=== PATIENT | male | born 1950 | race Caucasian/White ===

== ENCOUNTER 2021-07-24 21:23 | Inpatient (IN) | payer MEDICARE ==
[~2021-07-24] VITALS: Ht 182.9 cm; Wt 87.0 kg
[2021-07-24] MEDS ORDERED: BETAPACE 80MG T80 MG PO (21:38)
[2021-07-24] MEDS ORDERED: ISOSORBIDE MONO30 MG PO (21:38)
[2021-07-24] MEDS ORDERED: BUSPIRONE HCL7.5 MG PO (21:39)
[2021-07-24] MEDS ORDERED: AMLODIPINE BES2.5 MG PO (21:39)
[2021-07-24] MEDS ORDERED: ESCITALOPRAM OX10 MG PO (21:39)
[2021-07-24] MEDS ORDERED: DIGOXIN125 MCG PO (21:40)
[2021-07-24] MEDS ORDERED: NITROGLYCERIN0.4 MG SL (21:40)
[2021-07-24] MEDS ORDERED: ELIQUIS5 MG PO (21:41)
[2021-07-24] MEDS ORDERED: VASCEPA1 GM PO (21:41)
[2021-07-24] MEDS ORDERED: ALPRAZOLAM0.5 MG PO (21:42)
[2021-07-24] MEDS ORDERED: MAG-OX 400 TAB400 MG PO (21:42)
[2021-07-24] MEDS ORDERED: CETIRIZINE HCL10 MG PO (21:43)
[2021-07-24] MEDS ORDERED: HYDROCODON-ACE1 EAC6 PO (21:43)
[2021-07-24] MEDS ORDERED: MIRTAZAPINE30 MG PO (21:43)
[2021-07-24] MEDS ORDERED: ALENDRONATE SOD70 MG PO (21:44)
[2021-07-24] MEDS ORDERED: FLOMAX 0.4 MG0.4 MG PO (21:44)
[2021-07-24] MEDS ORDERED: FLONASE 0.05% N16 GM (21:45)
[2021-07-24] MEDS ORDERED: POTASSIUM CHLO10 MEQ PO (21:45)
[2021-07-24] MEDS ORDERED: OMEPRAZOLE20 MG PO (21:46)
[2021-07-24] MEDS ORDERED: JARDIANCE25 MG PO (21:46)
[2021-07-24 23:38] LABS: BUN/CREATININE RATIO 20 (0-10)
[2021-07-25 04:44] LABS: HEMOGLOBIN 12.4 gm/dl (14.0-17.5); RED BLOOD COUNT 4.07 M/UL (4.20-5.50); WHITE BLOOD COUNT 15.9 K/UL (4.5-11.0)
[2021-07-25 09:19] LABS: BUN/CREATININE RATIO 19 (0-10)
[2021-07-25 11:18] LABS: BUN/CREATININE RATIO 17 (0-10)
[2021-07-25 17:09] LABS: BUN/CREATININE RATIO 15 (0-10)
[2021-07-26 00:28] LABS: BUN/CREATININE RATIO 12 (0-10)
[2021-07-26 05:41] LABS: HEMOGLOBIN 11.8 gm/dl (14.0-17.5); RED BLOOD COUNT 3.74 M/UL (4.20-5.50); WHITE BLOOD COUNT 13.3 K/UL (4.5-11.0)
[2021-07-26 06:09] LABS: BUN/CREATININE RATIO 14 (0-10)
--- NOTE | 2021-07-26 08:20 | NUR ---
0656 CRITICAL SODIUM OF 118 CALLED FROM LAB. NOT NOTIFIED. THIS IS AN EXPECTED RESULT. PT IS CURRENTLY BEING TREATED FOR HYPONATREMIA. SEE MD NURSING COMMUNICATION ORDER.
[2021-07-26 12:32] LABS: BUN/CREATININE RATIO 15 (0-10)
[2021-07-26 19:07] LABS: BUN/CREATININE RATIO 13 (0-10)
[2021-07-27 00:09] LABS: BUN/CREATININE RATIO 13 (0-10)
[2021-07-27 04:15] LABS: HEMOGLOBIN 11.4 gm/dl (14.0-17.5); RED BLOOD COUNT 3.69 M/UL (4.20-5.50); WHITE BLOOD COUNT 14.2 K/UL (4.5-11.0)
[2021-07-27 06:08] LABS: BUN/CREATININE RATIO 12 (0-10)
[2021-07-27 11:40] LABS: BUN/CREATININE RATIO 14 (0-10)
[2021-07-27 17:08] LABS: BUN/CREATININE RATIO 17 (0-10)
[2021-07-28 04:54] LABS: BUN/CREATININE RATIO 14 (0-10)
[2021-07-28 16:17] LABS: BUN/CREATININE RATIO 19 (0-10)
[2021-07-29 05:05] LABS: HEMOGLOBIN 11.7 gm/dl (14.0-17.5); RED BLOOD COUNT 3.83 M/UL (4.20-5.50)
[2021-07-29 05:10] LABS: WHITE BLOOD COUNT 19.9 K/UL (4.5-11.0)
[2021-07-29 05:23] LABS: BUN/CREATININE RATIO 18 (0-10)
[2021-07-30 05:40] LABS: HEMOGLOBIN 11.2 gm/dl (14.0-17.5); RED BLOOD COUNT 3.55 M/UL (4.20-5.50); WHITE BLOOD COUNT 18.5 K/UL (4.5-11.0)
[2021-07-30 06:10] LABS: BUN/CREATININE RATIO 22 (0-10)
[2021-07-31 05:24] LABS: HEMOGLOBIN 9.2 gm/dl (14.0-17.5); RED BLOOD COUNT 2.97 M/UL (4.20-5.50)
[2021-07-31 05:53] LABS: BUN/CREATININE RATIO 24 (0-10)
[2021-08-01 05:14] LABS: HEMOGLOBIN 9.8 gm/dl (14.0-17.5); RED BLOOD COUNT 3.17 M/UL (4.20-5.50); WHITE BLOOD COUNT 12.6 K/UL (4.5-11.0)
[2021-08-01 05:38] LABS: BUN/CREATININE RATIO 20 (0-10)
--- NOTE | 2021-08-01 10:38 | NUR ---
PER DR. AGUILAR, DAILY SCHEDULED SAMSCA DISCONTINUED. ONE TIME DOSE OF SAMSCA 7.5 ORDER PER MD TO BE GIVEN NOW.
[2021-08-02 05:45] LABS: HEMOGLOBIN 10.3 gm/dl (14.0-17.5); RED BLOOD COUNT 3.44 M/UL (4.20-5.50)
[2021-08-02 05:51] LABS: WHITE BLOOD COUNT 17.3 K/UL (4.5-11.0)
[2021-08-03 05:31] LABS: HEMOGLOBIN 9.1 gm/dl (14.0-17.5); RED BLOOD COUNT 2.97 M/UL (4.20-5.50); WHITE BLOOD COUNT 14.3 K/UL (4.5-11.0)
[2021-08-04 05:30] LABS: HEMOGLOBIN 8.9 gm/dl (14.0-17.5); RED BLOOD COUNT 2.94 M/UL (4.20-5.50)
[2021-08-04 05:38] LABS: WHITE BLOOD COUNT 10.7 K/UL (4.5-11.0)
--- NOTE | 2021-08-04 15:29 | NUR ---
PT APPEARED TO BE HAVING LABORED BREATHING ON VENT SUPPORT. ETT SUCTIONED AND PT REPOSITIONED FOR COMFORT. DIPRIVAN TITRATED PER PROTOCOL. MD CONTACTED AND NEW ORDERED OBTAINED. VERSED STARTED PER MD LEVOPHED STARTED PER ORDER FOR BP SUPPORT. PT APPEARS TO BE BREATHING MORE COMFORTABLY NOW. VITALS STABLE. WILL CONTINUE TO MONITOR.
[2021-08-05 05:32] LABS: HEMOGLOBIN 8.8 gm/dl (14.0-17.5); RED BLOOD COUNT 2.87 M/UL (4.20-5.50)
[2021-08-05 05:48] LABS: WHITE BLOOD COUNT 16.8 K/UL (4.5-11.0)
[2021-08-05 15:06] LABS: BODY FLUID SOURCE PLEURAL; WBC (AUTOMATED) 1742 (0-500)
[2021-08-05 15:07] LABS: MONONUCLEAR CELLS 56.6 (75-100); POLYMORPHONUCLEAR % 43.4 (0-25); RBC (AUTOMATED) 264400 (0-100000)
[2021-08-05 15:28] LABS: LDH, BODY FLUID 399 U/L; TOTAL PROTEIN, BODY FLUID 3.3 gm/dL
[2021-08-06 05:58] LABS: HEMOGLOBIN 8.4 gm/dl (14.0-17.5); RED BLOOD COUNT 2.84 M/UL (4.20-5.50); WHITE BLOOD COUNT 14.6 K/UL (4.5-11.0)
== END 2021-08-06 17:38 | disposition expired | DRG 853 ==
LOC: CCU 21:23
PROVIDERS: Internal Medicine; Internal Medicine Nephrology; ADMIT Internal Medicine
PROC: B24BZZ4 Ultrasonography of Heart with Aorta, Transesophageal (ICD-10-PCS; 2021-07-25)
PROC: 5A09557 Assistance with Respiratory Ventilation, Greater than 96 Consecutive Hours, Continuous Positive Airway Pressure (ICD-10-PCS; 2021-07-26)
PROC: 5A1955Z Respiratory Ventilation, Greater than 96 Consecutive Hours (ICD-10-PCS; principal; 2021-07-30)
PROC: 0BH18EZ Insertion of Endotracheal Airway into Trachea, Via Natural or Artificial Opening Endoscopic (ICD-10-PCS; 2021-07-30)
PROC: 0B9F8ZX Drainage of Right Lower Lung Lobe, Via Natural or Artificial Opening Endoscopic, Diagnostic (ICD-10-PCS; 2021-07-31)
PROC: 0B9C8ZX Drainage of Right Upper Lung Lobe, Via Natural or Artificial Opening Endoscopic, Diagnostic (ICD-10-PCS; 2021-07-31)
PROC: 0BBF8ZX Excision of Right Lower Lung Lobe, Via Natural or Artificial Opening Endoscopic, Diagnostic (ICD-10-PCS; 2021-07-31)
PROC: 0BBC8ZX Excision of Right Upper Lung Lobe, Via Natural or Artificial Opening Endoscopic, Diagnostic (ICD-10-PCS; 2021-07-31)
PROC: 0W3Q8ZZ Control Bleeding in Respiratory Tract, Via Natural or Artificial Opening Endoscopic (ICD-10-PCS; 2021-07-31)
PROC: 0W993ZZ Drainage of Right Pleural Cavity, Percutaneous Approach (ICD-10-PCS; 2021-08-05)
DX: A41.9 Sepsis, unspecified organism (principal); J18.9 Pneumonia, unspecified organism; R65.21 Severe sepsis with septic shock; N17.0 Acute kidney failure with tubular necrosis; J80 Acute respiratory distress syndrome; G93.41 Metabolic encephalopathy; J44.0 Chronic obstructive pulmonary disease with (acute) lower respiratory infection; E22.2 Syndrome of inappropriate secretion of antidiuretic hormone; C34.90 Malignant neoplasm of unspecified part of unspecified bronchus or lung; I48.20 Chronic atrial fibrillation, unspecified; E87.2 Acidosis; J91.0 Malignant pleural effusion; C78.7 Secondary malignant neoplasm of liver and intrahepatic bile duct; C77.9 Secondary and unspecified malignant neoplasm of lymph node, unspecified; Z66 Do not resuscitate; Z51.5 Encounter for palliative care; E87.5 Hyperkalemia; F41.9 Anxiety disorder, unspecified; I25.10 Atherosclerotic heart disease of native coronary artery without angina pectoris; I10 Essential (primary) hypertension; N40.0 Benign prostatic hyperplasia without lower urinary tract symptoms; E78.5 Hyperlipidemia, unspecified; F32.A Depression, unspecified; M81.0 Age-related osteoporosis without current pathological fracture; G47.00 Insomnia, unspecified; R53.81 Other malaise; G89.29 Other chronic pain; L89.152 Pressure ulcer of sacral region, stage 2; K21.9 Gastro-esophageal reflux disease without esophagitis; R62.7 Adult failure to thrive; D69.6 Thrombocytopenia, unspecified; Z95.1 Presence of aortocoronary bypass graft; Z79.899 Other long term (current) drug therapy; Z88.0 Allergy status to penicillin
CPT/HCPCS: ECHO; 31500; 36415; 36600; 71045; 71250; 80048; 80053; 80202; 81001; 82150; 82436; 82533; 82803; 82945; 82962; 83615; 83735; 83880; 83930; 83935; 83986; 84132; 84133; 84157; 84295; 84300; 84439; 84443; 84550; 85025; 85027; 85379; 85384; 85610; 87040; 87070; 87081; 87086; 87205; 88341; 88342; 88360; 89051; 93005; 93306; 94002; 94003; 94640; 94664; 94760; A6212; C9113; J0610; J0692; J1205; J1650; J1940; J2250; J2270; J2543; J2597; J2704; J2920; J3010; J3370; J3480; J7030; J7060; J7070; P9047; U0002